=== PATIENT | male | born 1940 | race Caucasian/White ===

== ENCOUNTER 2022-08-14 09:50 | Inpatient (IN) | payer BC, OTHER ==
[~2022-08-14] VITALS: Ht 162.6 cm; Wt 95.3 kg
[2022-08-14 10:05] VITALS: BP_SYST 178
--- NOTE | 2022-08-14 10:08 | NUR ---
Patient to ER bed 5 to gown for evaluation. Side rails up. Report given to EDUIN
--- NOTE | 2022-08-14 10:10 | NUR ---
DR. ROSE AT BEDSIDE TOP ASSESS PT.
--- NOTE | 2022-08-14 10:38 | NUR ---
# 22 gauge angiocath placed to LH. Use of asceptic technique. Opsite placed over site. Blood return noted. Blood for lab drawn from site. Flushed with 10 cc of normal saline. No evidence of infiltration noted. Patient tolerated well.
--- NOTE | 2022-08-14 10:44 | NUR ---
COVID/FLU SAMPLE OBTAINED AND TAKEN TO LAB. EKG COMPLETED.
[2022-08-14 10:52] LABS: BASOPHILS % (AUTO) 0.4 % (0.0-2.0); EOSINOPHILS # (AUTO) 0.1 K/uL (0.0-0.4); HEMATOCRIT 42.2 % (36-54); HEMOGLOBIN 14.5 g/dL (14.0-18.0); LYMPHOCYTES # (AUTO) 0.8 K/uL (1.0-5.5); LYMPHOCYTES % (AUTO) 8.4 % (20.5-51.5); MEAN CORPUSCULAR HEMOGLOBIN 31 pg (27-31); MEAN CORPUSCULAR HGB CONC 34 % (32-36); MEAN CORPUSCULAR VOLUME 91 fL (79.0-98.0); MONOCYTES # (AUTO) 0.7 K/uL (0.0-1.0); MONOCYTES % (AUTO) 7.3 % (1.7-9.3); NEUTROPHILS # (AUTO) 8.3 K/uL (1.8-7.7); NEUTROPHILS % (AUTO) 82.9 % (40.0-70.0); PLATELET COUNT (AUTO) 182 K/uL (130-430); RED BLOOD CELL COUNT(AUTO) 4.67 MIL/uL (4.2-6.2); RED CELL DISTRIBUTION WIDTH 14.6 % (9.0-15.0)
[2022-08-14] MEDS ORDERED: LISI40TA20 PO (11:25)
[2022-08-14] MEDS ORDERED: LIP80 PO (11:25)
[2022-08-14] MEDS ORDERED: NIFE90TA48 PO (11:26)
[2022-08-14] MEDS ORDERED: TERA2CAP18 PO (11:26)
[2022-08-14] MEDS ORDERED: METO50TA7 PO (11:26)
[2022-08-14 11:28] LABS: ANION GAP 13 (5-15); ASPARTATE AMINOTRANSFERASE 12 U/L (10-37); CALCIUM 8.7 mg/dL (8.4-11.0); CHLORIDE 101 mmol/L (98-107); CREATININE 1.24 mg/dL (0.55-1.30); GLUCOSE 161 mg/dL (70-99); TOTAL BILIRUBIN 0.9 mg/dL (0.0-1.0); UREA NITROGEN, BLOOD 14 mg/dL (8-21)
[2022-08-14 11:29] LABS: ALANINE AMINOTRANSFERASE 7 U/L (12-78)
--- NOTE | 2022-08-14 12:10 | NUR ---
MED REC COMPLETED. LEVOFLOXACIN IVPB INITIATED.
[2022-08-14] MEDS ORDERED: iohexoL 350 mgI/mL, 100 ML INFUS..BTL IV ONE (13:13)
--- NOTE | 2022-08-14 13:34 | NUR ---
Pt repositioned to comfort with TV on, VSS.
[2022-08-14] MEDS ORDERED: ONDANSETRON HCL 4 MG/2 ML VIAL IVP PRN (14:45)
[2022-08-14] MEDS ORDERED: ALBUTEROL SULFATE 0.083% 2.5 MG/3 ML VIAL.NEB INH PRN (14:45)
[2022-08-14] MEDS ORDERED: IPRATROPIUM BROM 0.5 MG/2.5 ML VIAL.NEB (ATROVENT) INH PRN (14:45)
[2022-08-14] MEDS ORDERED: AZITHROMYCIN 500 MG in NS 250 ML IV SCH (14:45)
[2022-08-14] MEDS ORDERED: cefTRIAXone 1 GM IVPB PREMIX 50 ML IV SCH (14:45)
[2022-08-14] MEDS ORDERED: LISINOPRIL 10 MG TABLET (PRINIVIL) PO SCH (15:00)
[2022-08-14] MEDS ORDERED: POTASSIUM CHLORIDE 20 MEQ/PKT PACKET PO ONE (15:00)
--- NOTE | 2022-08-14 16:47 | NUR ---
REPORTED TO DR. SCHROEDER THAT PT HAD 2 IV LINES BLOW DURING CTA. RECEIVED ORDER FOR CANCEL CTA AND ORDER V/Q SCAN FOR TOMORROW. ORDER CARRIED OUT. Addendum: 08/14/22 at 1709 by [email or web address] CLARIFICATION: REPORTED TO DR. MENJIVAR
[2022-08-14] MEDS ORDERED: AZITHROMYCIN 500 MG/VIAL (ZITHROMAX) IV ONE ×2 (16:52→16:57)
--- NOTE | 2022-08-14 18:34 | NUR ---
contacted respiratory therapy reported SOB.
--- NOTE | 2022-08-14 18:44 | NUR ---
PT HAS SOB O2 SAT IN THE 80S. PT PLACED ON NONREBREATHER AT 15LPM O2 SAT AT 88%. R/T AT BEDSIDE APPLYING BIPAP.
[2022-08-14] MEDS ORDERED: LevALBUTEROL HCL 1.25 MG/0.5 ML *CONC.* VIAL.NEB (XOPENEX CONC.) INH ONE (18:45)
--- NOTE | 2022-08-14 18:47 | NUR ---
YASMEEN NURSE NABILA MENDOZA TO MAKE AWARE OF RESP DISTRESS
--- NOTE | 2022-08-14 18:59 | NUR ---
REPORTED TO DR. MENDOZA PT SOB ON BIPAP, O2 SAT NOW 89%. RECEIVED ORDER TO INTUBATE. DR. MALDONADO MADE AWARE.
[2022-08-14] MEDS ORDERED: PROPOFOL DRIP 100 ML IV ONE ×2 (19:00→23:44)
[2022-08-14] MEDS ORDERED: ROCURONIUM BROMIDE 10 MG/ML (ZEMURON) IV ONE ×2 (19:00→19:15)
[2022-08-14] MEDS ORDERED: ETOMIDATE 20 MG/ 10 ML VIAL (AMIDATE) IVP ONE (19:00)
--- NOTE | 2022-08-14 19:08 | NUR ---
PT'S SON RESISTING INTUBATION. PT AND PT'S SON EDUCATED ON THE PROCESS. PT'S SON AND PT STATE, "OKAY TO INTUBATED.
--- NOTE | 2022-08-14 19:15 | NUR ---
PT ENDORSED TO EDUIN CHAPPELL. ALL QUESTIONS AND CONCERNS ADDRESSED. TA AWARE PT IS TO BE INTUBATED STAT.
--- NOTE | 2022-08-14 19:21 | NUR ---
Patient not known to be of DNR status. Patient medicated with ETOMIODATE 25 mg AND ROCURONIUM 100 MG for sedation prior to placement of ET tube. Respiratory therapy at bedside prior to placement. Size 7.5 ET AT 23 AT THE LIP tube placed by DR. MARCIAL. Cuff inflated with 12 cc air. Auscultation of breath sounds over bilateral chest wall. ET tube secured with HOLSTER. O2 sats 100 pulse ox. PCXR ordered to check tube placement.
--- NOTE | 2022-08-14 19:30 | NUR ---
DIPRIVAN 5 CG/KG/MIN STARTED FOR SEDATION AT THIS TIME.
--- NOTE | 2022-08-14 19:35 | NUR ---
TITRATED DIPRIVAN TO 10 CG/KG/MIN AT THIS TIME
--- NOTE | 2022-08-14 19:40 | NUR ---
TITRATED DIPRIVAN TO 15 CG/KG/MIN AT THIS TIME
--- NOTE | 2022-08-14 19:45 | NUR ---
Nia rhodes in [facility] - 08/14/22 at 2311 by [email or web address] TITRATED DIPRIVAN TO 15 CG/KG/MIN AT THIS TIME
--- NOTE | 2022-08-14 19:45 | NUR ---
TITRATED DIPRIVAN TO 20 CG/KG/MIN AT THIS TIME
--- NOTE | 2022-08-14 19:45 | NUR ---
Nia rhodes in [facility] - 08/14/22 at 2313 by [email or web address] TITRATED DIPRIVAN TO 25 MCG/KG/MIN AT THIS TIME
--- NOTE | 2022-08-14 19:50 | NUR ---
Nia rhodes in [facility] - 08/14/22 at 2313 by [email or web address] TITRATED DIPRIVAN TO 20 CG/KG/MIN AT THIS TIME
--- NOTE | 2022-08-14 19:50 | NUR ---
TITRATED DIPRIVAN TO 25 CG/KG/MIN AT THIS TIME
--- NOTE | 2022-08-14 19:55 | NUR ---
TITRATED DIPRIVAN TO 30 MCG/KG/MIN AT THIS TIME
--- NOTE | 2022-08-14 20:00 | NUR ---
TITRATED DIPRIVAN TO 35 MCG/KG/MIN AT THIS TIME
--- NOTE | 2022-08-14 20:05 | NUR ---
Nia rhodes in [facility] - 08/14/22 at 2315 by [email or web address] TITRATED DIPRIVAN TO 35 MCG/KG/MIN AT THIS TIME
--- NOTE | 2022-08-14 20:05 | NUR ---
TITRATED DIPRIVAN TO 40 MCG/KG/MIN AT THIS TIME
--- NOTE | 2022-08-14 20:05 | NUR ---
TITRATED DIPRIVAN TO 35 MCG/KG/MIN AT THIS TIME
--- NOTE | 2022-08-14 20:10 | NUR ---
TITRATED DIPRIVAN TO 45 MCG/KG/MIN AT THIS TIME
--- NOTE | 2022-08-14 20:15 | NUR ---
TITRATED DIPRIVAN TO 50 MCG/KG/MIN AT THIS TIME
--- NOTE | 2022-08-14 20:17 | NUR ---
# 16 FR Rowell catheter with use of sterile technique. Immediate return of 100 cc gwen urine noted. Bedside drainage bag placed below level of bladder. Urine sample collected and sent to lab. Pt tolerated procedure well
--- NOTE | 2022-08-14 20:20 | NUR ---
# 16 FR NG tube placed to left nare. Placement checked by auscultation of instilled air into stomach and aspiration of gastric contents. Tubing taped in place to prevent dislodging. Patient tolerated well
[2022-08-14] MEDS ORDERED: hydrALAZINE HCL 20 MG/ML VIAL IVP ONE (20:45)
[2022-08-14] MEDS ORDERED: NITROGLYCERIN 250 ML IV PRN (21:30)
[2022-08-14] MEDS ORDERED: DEXAMETHASONE SOD PHOSPHATE 10 MG/ML VIAL IVP ONE (21:45)
--- NOTE | 2022-08-14 22:00 | NUR ---
@ 1845 assisted in assessment and initiation of BiPAP @ 1905 called to ER to prepare ventilator, at bedside to assist in intubation of pt. No complications to note during procedure.
--- NOTE | 2022-08-14 22:06 | NUR ---
chest xray reviewed by Dr. Bailey. identified ng tube. ok to use
--- NOTE | 2022-08-14 22:06 | NUR ---
Note carmelo in [facility] - 08/15/22 at 0006 by [email or web address] chest xray reviewed by Dr. Bailey. indentified ng tube. ok to use
--- NOTE | 2022-08-14 22:30 | NUR ---
NITRO DRIP STARTED AT 5 MCG/KG/MIN FOR BP OF 200/100.
[2022-08-14] MEDS: FUROSEMIDE 40 MG/4 ML VIAL IVP SCH (22:55)
[2022-08-15] VITALS (34 sets, daily range): BP systolic 109–165
--- NOTE | 2022-08-15 | NUR ---
Oral care performed on patient with ballard. Hernandez tolerated well.
--- NOTE | 2022-08-15 00:30 | NUR ---
1000 ml of gwen urine removed from minor bag. Patient the moved to hospital bed a this time for comfort.
--- NOTE | 2022-08-15 00:59 | NUR ---
nitro 5 mcg/min stopped at this time. BP is 115/62 hr 70.
--- NOTE | 2022-08-15 02:10 | NUR ---
Patient will be admitted to care of DR Jenkins. Admitted to ICU unit. Will go to ICU 4. Belongings list completed. Complete and up to date summary report printed. SBAR report to be given at bedside with opportunity for questions.
--- NOTE | 2022-08-15 03:40 | NUR ---
CONSULTATION PAGED/CALLED Reason for Consultation: Resp Failure Person Who was Notified: Tha Consulting Physician: Dr Golden Customer Service Operator Specialty: Pulmonary Ordering Physician: Dr Lester
[2022-08-15] MEDS ORDERED: NOREPINEPHRINE BITARTRATE 4 MG in NS 246 ML IV PRN (04:15)
[2022-08-15] MEDS ORDERED: FENTANYL CITRATE-0.9 % NACL/PF 100 ML IV PRN (04:15)
[2022-08-15 07:03] LABS: ALANINE AMINOTRANSFERASE 15 U/L (12-78); ANION GAP 7 (5-15); ASPARTATE AMINOTRANSFERASE 16 U/L (10-37); CALCIUM 8.1 mg/dL (8.4-11.0); CHLORIDE 105 mmol/L (98-107); CREATININE 1.37 mg/dL (0.55-1.30); GLUCOSE 191 mg/dL (70-99); TOTAL BILIRUBIN 0.9 mg/dL (0.0-1.0); UREA NITROGEN, BLOOD 19 mg/dL (8-21)
[2022-08-15] MEDS ORDERED: METO50TA16 PO (07:40)
[2022-08-15 08:01] LABS: BASOPHILS % (AUTO) 0.1 % (0.0-2.0); HEMATOCRIT 36.7 % (36-54); HEMOGLOBIN 12.5 g/dL (14.0-18.0); LYMPHOCYTES # (AUTO) 0.5 K/uL (1.0-5.5); LYMPHOCYTES % (AUTO) 2.6 % (20.5-51.5); MEAN CORPUSCULAR HEMOGLOBIN 31 pg (27-31); MEAN CORPUSCULAR HGB CONC 34 % (32-36); MEAN CORPUSCULAR VOLUME 91 fL (79.0-98.0); MONOCYTES # (AUTO) 0.9 K/uL (0.0-1.0); MONOCYTES % (AUTO) 4.8 % (1.7-9.3); NEUTROPHILS # (AUTO) 16.8 K/uL (1.8-7.7); NEUTROPHILS % (AUTO) 92.5 % (40.0-70.0); PLATELET COUNT (AUTO) 173 K/uL (130-430); RED BLOOD CELL COUNT(AUTO) 4.05 MIL/uL (4.2-6.2); RED CELL DISTRIBUTION WIDTH 14.5 % (9.0-15.0)
[2022-08-15] MEDS: PROPOFOL DRIP 100 ML IV PRN ×5 (08:02→21:52)
[2022-08-15 08:07] LABS: WHITE BLOOD COUNT (AUTO) 18.1 K/uL (4.8-10.8)
--- NOTE | 2022-08-15 08:39 | NUR ---
[facility] PAGED DR STEWART REQUESTED BY DR SINGH, SPOKE TO ERLIN, LEFT MESSAGE.
--- NOTE | 2022-08-15 08:44 | NUR ---
TEST EKG DONE AT BEDSIDE.
[2022-08-15] MEDS: lisinopriL 20 MG TABLET PO SCH (08:54)
--- NOTE | 2022-08-15 08:55 | NUR ---
MEDS PO MEDS NOT GIVEN, DAUGHTER STATED "LET'S NOT OVER MEDICATE HIM, HE IS ALREADY ON NITROGLYCERIN DRIP.
[2022-08-15] MEDS: FUROSEMIDE 40 MG/4 ML VIAL IVP SCH ×2 (09:39→21:54)
[2022-08-15] MEDS: ENOXAPARIN SODIUM 40 MG/0.4 ML SYRINGE SUBCUT SCH (09:42)
--- NOTE | 2022-08-15 09:45 | NUR ---
MD DR STEWART RETURNED THE CALL. NOTIFIED HIM OF THE CENTRAL LINE PLACEMENT THRU FEMORAL AREA. HE STATED TO CALL UP A VASCULAR SURGEON IF THE WIRE IS IN THE BLOOD VESSEL.
[2022-08-15 10:11] LABS: THYROID STIMULATING HORMONE 0.39 uIu/mL (0.34-4.82)
[2022-08-15] MEDS: PIPERACILLIN/TAZO 2.25G/DEX-IS 50 ML IV SCH ×3 (11:57→23:55)
--- NOTE | 2022-08-15 15:47 | NUR ---
SURGERY FAMILY AT BEDSIDE AND INFORMED THAT TODAY'S SURGERY IS MOVED TO TOMORROW MORNING.
--- NOTE | 2022-08-15 16:31 | NUR ---
ELEVATED D DIMER PAGED DR ROSALES AND HE CALLED BACK. D DIMER 2069, NO NEW ORDERS RECEIVED.
--- NOTE | 2022-08-15 19:30 | NUR ---
RECEIVED SEDATED WITH PROPOFOL, RASS -2. PATIENT WITHDRAWS TO PAIN. ORALLY INTUBATED, ETT 7.5 AT 25 CM LIPLINE. AC 24, FIO2 35%, TV 450 AND PEEP 5. SUCTIONED SMALL AMOUNT OF WHITISH SECRETIONS. SAT 100%. NURSING CLINICAL DIRECTOR IS SHOWING SB, PATIENT IS ON NTG DRIP AT 4 MCG/MIN . IVS ARE INFUSING ON THE RIGHT IJ TLC. ABDOMEN IS SOFT AND NON-DISTENDED. LEFT NARE NGT IS CLAMPED. PATIENT IS NPO. KLEIN INTACT AND PATENT DRAINING WELL TO ELIZ COLORED URINE. FAMILY IN THE ROOM, QUESTIONS ANSWERED. PATIENT IS AFEBRILE.
[2022-08-16] VITALS (37 sets, daily range): BP systolic 129–211
[2022-08-16] MEDS: PROPOFOL DRIP 100 ML IV PRN ×4 (02:22→16:16)
[2022-08-16] MEDS: PIPERACILLIN/TAZO 2.25G/DEX-IS 50 ML IV SCH ×3 (06:03→17:51)
[2022-08-16 07:52] LABS: ANION GAP 3 (5-15); CALCIUM 8.5 mg/dL (8.4-11.0); CHLORIDE 106 mmol/L (98-107); CREATININE 1.85 mg/dL (0.55-1.30); GLUCOSE 109 mg/dL (70-99); UREA NITROGEN, BLOOD 30 mg/dL (8-21)
[2022-08-16 07:58] LABS: ALANINE AMINOTRANSFERASE 12 U/L (12-78); ALBUMIN 2.8 g/dL (3.4-4.8); ASPARTATE AMINOTRANSFERASE 11 U/L (10-37); TOTAL BILIRUBIN 0.9 mg/dL (0.0-1.0)
[2022-08-16 08:14] LABS: BASOPHILS % (AUTO) 0.2 % (0.0-2.0); EOSINOPHILS % (AUTO) 0.2 % (0.0-4.0); HEMATOCRIT 32.1 % (36-54); LYMPHOCYTES # (AUTO) 1.3 K/uL (1.0-5.5); LYMPHOCYTES % (AUTO) 11.1 % (20.5-51.5); MEAN CORPUSCULAR HEMOGLOBIN 31 pg (27-31); MEAN CORPUSCULAR HGB CONC 34 % (32-36); MEAN CORPUSCULAR VOLUME 90 fL (79.0-98.0); MONOCYTES # (AUTO) 1.3 K/uL (0.0-1.0); NEUTROPHILS # (AUTO) 8.9 K/uL (1.8-7.7); NEUTROPHILS % (AUTO) 77.5 % (40.0-70.0); PLATELET COUNT (AUTO) 156 K/uL (130-430); RED BLOOD CELL COUNT(AUTO) 3.57 MIL/uL (4.2-6.2); RED CELL DISTRIBUTION WIDTH 14.8 % (9.0-15.0); WHITE BLOOD COUNT (AUTO) 11.5 K/uL (4.8-10.8)
[2022-08-16] MEDS: ENOXAPARIN SODIUM 40 MG/0.4 ML SYRINGE SUBCUT SCH (09:00)
[2022-08-16] MEDS ORDERED: ATROPINE SULFATE 0.4 MG/ML VIAL IVP ONE (09:00)
[2022-08-16] MEDS: lisinopriL 20 MG TABLET PO SCH (09:00)
[2022-08-16] MEDS: FUROSEMIDE 40 MG/4 ML VIAL IVP SCH ×2 (09:09→20:15)
[2022-08-16] MEDS ORDERED: DOPamine PREMIX 250 ML IV ONE (09:10)
--- NOTE | 2022-08-16 09:36 | NUR ---
Bety.Tony. PT NOTED WITH BILE COLOR DRAINAGE IN THE NGT. DR ROSALES IN THE ROOM. ORDERED TO LEAVE IT ON LOW INTERMITTENT SUCTION, ORDERS CARRIED OUT.
--- NOTE | 2022-08-16 11:35 | NUR ---
TO O.R. TRANSPORTED PT VIA BED, R.T. BAGGING PT VIA ET TUBE, PORTABLE AMUSEMENT MACHINE MECHANIC IN USE, PT ON DIPRIVAN DRIP AT 40 MCG/KG/MIN, DOBUTAMINE DRIP AT 2 MCG/KG/MIN AND NITROGLYCERIN DRIP AT 5 MCG/MIN.
--- NOTE | 2022-08-16 12:40 | NUR ---
Pt have PVC's on the monitor. Requested RT to change pt back to AC on the vent. Addendum: 08/16/22 at 2227 by Silvia Santiago RN Wrong time listed above. Please disregard
--- NOTE | 2022-08-16 13:22 | NUR ---
TO ICU BROUGHT PT BACK TO ROOM 4. STABLE VITALS SIGNS, CONTINUE CURRENT TREATMENTS.
[2022-08-16] MEDS ORDERED: KCL 20 mEq in 100 mL (PREMIX) 100 ML IV ONE ×2 (13:30→15:30)
--- NOTE | 2022-08-16 13:54 | NUR ---
informed of HR 90's and dobutamine infusing at 2 mcgs. Orders to turn it off and dobutamine turned off. Bedside RN made aware and family made aware as well.
--- NOTE | 2022-08-16 17:30 | NUR ---
VENT R.T. AT BEDSIDE, EDUCATION ON BREATHING TRIAL PROVIDED TO PT'S SON AND DAUGHTER. CPAP MODE INITIATED. PROPOFOL DRIP OFF, PRECEDEX DRIP AT 0.2 MCG/KG/HR.
--- NOTE | 2022-08-16 19:30 | NUR ---
Assumed care of the patient. Pt resting comfortablly on the vent with CPAP trials 10/5 30% in progress without any distress. HOB up. HR 50's with precedex infusing at 2 mcgs and Ntg at 6 mcgs via RIJ. PT remains NPO with and NG in place to LIS. No drainage. Abd soft with bowel sounds. Rowell with gwen urine. Pt arousable andable to nod head yes or no to questions. Family at bedside.
--- NOTE | 2022-08-16 20:36 | NUR ---
Spoke with Dr. Jackson regarding HR 40's 50's. DObutamine reordered and started at 2 mcgs/kg/min. Plan of care to restart IVF and restart dobutamine discussed with pts daughter.
--- NOTE | 2022-08-16 20:40 | NUR ---
Pt have PVC's on the monitor. Requested RT to change pt back to AC on the vent.
--- NOTE | 2022-08-16 21:30 | NUR ---
BP high with dobutamine infusing. Decreased to 0.5 mcgs. Ntg increased to 15 mcgs for BP 210/80. SR on monitor. HR 77. Family remains at bedside falling asleep in the chair. Pt repositioned in bed.
[2022-08-17] VITALS (28 sets, daily range): BP systolic 122–206
--- NOTE | 2022-08-17 | NUR ---
Family remains at bedside. Repositioned pt in bed with pillow support. Heels lifted off bed on a pillow. Comfortable on the vent. Pt easily arousable.
[2022-08-17] MEDS: PIPERACILLIN/TAZO 2.25G/DEX-IS 50 ML IV SCH ×4 (01:43→17:24)
[2022-08-17 06:59] LABS: BASOPHILS % (AUTO) 0.3 % (0.0-2.0); EOSINOPHILS % (AUTO) 0.2 % (0.0-4.0); HEMATOCRIT 32.9 % (36-54); HEMOGLOBIN 11.6 g/dL (14.0-18.0); LYMPHOCYTES % (AUTO) 12.1 % (20.5-51.5); MEAN CORPUSCULAR HEMOGLOBIN 32 pg (27-31); MEAN CORPUSCULAR HGB CONC 35 % (32-36); MEAN CORPUSCULAR VOLUME 91 fL (79.0-98.0); NEUTROPHILS # (AUTO) 6.3 K/uL (1.8-7.7); NEUTROPHILS % (AUTO) 75.4 % (40.0-70.0); PLATELET COUNT (AUTO) 145 K/uL (130-430); RED BLOOD CELL COUNT(AUTO) 3.64 MIL/uL (4.2-6.2); RED CELL DISTRIBUTION WIDTH 13.9 % (9.0-15.0); WHITE BLOOD COUNT (AUTO) 8.3 K/uL (4.8-10.8)
[2022-08-17 07:22] LABS: ALANINE AMINOTRANSFERASE 11 U/L (12-78); ALBUMIN 2.9 g/dL (3.4-4.8); ANION GAP 8 (5-15); ASPARTATE AMINOTRANSFERASE 9 U/L (10-37); CALCIUM 7.6 mg/dL (8.4-11.0); CHLORIDE 108 mmol/L (98-107); CREATININE 1.47 mg/dL (0.55-1.30); GLUCOSE 162 mg/dL (70-99); TOTAL BILIRUBIN 1.1 mg/dL (0.0-1.0); UREA NITROGEN, BLOOD 25 mg/dL (8-21)
--- NOTE | 2022-08-17 08:00 | NUR ---
Opening Note: Patient is a 81 year old male that was admitted to [facility] 08/14 for a CC: SOB for one week, SOB s/p excertion/lying flat, leg swelling. DX: Respiratory Faliure. In E.R. they attempted to do a femoral line where the sheeth broke off inside the patient, and it was removed yesterday. PMHX: borderline DM non tender medications, HTN, hyperlipidemia. RIJ- intact, patent, dressing CDI. IVF: Nitro 20mcg, D5 1/2 100cc, Precedex 0.2mcg. Intubated on 08/14 for worsening RF on Bipap. ETT: 7.5/24cm. Vent: AC/VC 24, 450, +5, 35%. NGT to left nare- running at low intermittent suction, NPO at this time. Rowell inserted 08/16- draining to gravity. +2 edema noted to BLE. Potassium 2.6- MD aware dr henry ordered 40meq via NGT. CPAP to start this am, possible extubation per noc report pending pulmo rounding. and family at bedside will update PRN. Addendum: 08/17/22 at 1107 by [facility], EDUIN DENNY correction: daughter
--- NOTE | 2022-08-17 08:17 | NUR ---
Spoke with Carrie requesting orders from Dr. Lester
[2022-08-17] MEDS ORDERED: POTASSIUM CHLORIDE 20 MEQ TAB.PRT.SR PO ONE (09:00)
--- NOTE | 2022-08-17 09:34 | NUR ---
Pulmo rounds: Dr west - aware patient is CPAPing at this time. ABG after one hour- RT aware, possible extubation. Norvasc added for hypertension (10mg daily) GI MD- replaced potassium 40meq via ngt, 40meq via IV. - family at bedside aware of plan of care.
[2022-08-17] MEDS ORDERED: POTASSIUM CHLORIDE 40 MEQ in NS 250 ML IV ONE (09:45)
[2022-08-17] MEDS ORDERED: amLODIPine BESYLATE 10 MG TABLET NG ONE (10:00)
[2022-08-17] MEDS: lisinopriL 20 MG TABLET PO SCH (10:16)
[2022-08-17] MEDS: ENOXAPARIN SODIUM 40 MG/0.4 ML SYRINGE SUBCUT SCH (10:18)
[2022-08-17] MEDS: FUROSEMIDE 40 MG/4 ML VIAL IVP SCH ×2 (10:18→21:37)
--- NOTE | 2022-08-17 10:30 | NUR ---
0953 PT EXTUBATED AND PLACED ON 2L NC PER DR. MOHAMUD YODER. SAT 100% HR 62 RR 19. RN AWARE. WILL CONT TO MONITOR. Addendum: 08/17/22 at 1033 by Evy Levi RT Amended: Links added.
--- NOTE | 2022-08-17 11:04 | NUR ---
extubated: ABG complete, Seen by Dr West- extubated at 0953 to NC2L at bedside. NGT still in place, pending tube feeding to start once feeding pump is obtained. Addendum: 08/17/22 at 1107 by [facility] RN correction: daughter Addendum: 08/17/22 at 1135 by [facility] EDUIN Montez RN dr west cancelled VQ scan
--- NOTE | 2022-08-17 11:25 | NUR ---
Spoke with Topher at front of house manager requesting orders from Dr. Martinez
[2022-08-17] MEDS ORDERED: NITROGLYCERIN 250 ML IV PRN (20:00)
[2022-08-18] VITALS (24 sets, daily range): BP systolic 115–177
[2022-08-18] MEDS: PIPERACILLIN/TAZO 2.25G/DEX-IS 50 ML IV SCH ×4 (01:00→18:21)
[2022-08-18 06:46] LABS: ANION GAP 6 (5-15); CALCIUM 8.4 mg/dL (8.4-11.0); CHLORIDE 107 mmol/L (98-107); CREATININE 1.29 mg/dL (0.55-1.30); GLUCOSE 157 mg/dL (70-99); UREA NITROGEN, BLOOD 23 mg/dL (8-21)
[2022-08-18 06:56] LABS: BASOPHILS # (AUTO) 0.1 K/uL (0.0-0.2); BASOPHILS % (AUTO) 0.9 % (0.0-2.0); EOSINOPHILS # (AUTO) 0.1 K/uL (0.0-0.4); EOSINOPHILS % (AUTO) 0.9 % (0.0-4.0); HEMOGLOBIN 10.7 g/dL (14.0-18.0); LYMPHOCYTES # (AUTO) 1.2 K/uL (1.0-5.5); LYMPHOCYTES % (AUTO) 13.8 % (20.5-51.5); MEAN CORPUSCULAR HEMOGLOBIN 32 pg (27-31); MEAN CORPUSCULAR HGB CONC 36 % (32-36); MEAN CORPUSCULAR VOLUME 90 fL (79.0-98.0); MONOCYTES % (AUTO) 11.4 % (1.7-9.3); NEUTROPHILS # (AUTO) 6.3 K/uL (1.8-7.7); PLATELET COUNT (AUTO) 155 K/uL (130-430); RED BLOOD CELL COUNT(AUTO) 3.32 MIL/uL (4.2-6.2); RED CELL DISTRIBUTION WIDTH 13.8 % (9.0-15.0); WHITE BLOOD COUNT (AUTO) 8.7 K/uL (4.8-10.8)
--- NOTE | 2022-08-18 07:25 | NUR ---
Spoke with Rosalina at lead front desk agent requesting Dr. Lester; however, was referred to Dr. Branch to request orders for patient.
--- NOTE | 2022-08-18 07:44 | NUR ---
Opening Note: Patient is a 81 year old male that was admitted to [place] 08/14 for a CC: SOB for one week, SOB s/p excertion/lying flat, leg swelling. DX: Respiratory Faliure. In E.R. they attempted to do a femoral line where the sheeth broke off inside the patient, and it was removed 08/16. PMHX: borderline DM non tender medications, HTN, hyperlipidemia. RIJ- intact, patent, dressing CDI. IVF: Nitro 35mcg,Precedex off last night. Intubated on 08/14 for worsening RF on Bipap. Extubated yesterday 08/17 to NC2L. NGT to left nare- running Jevity 1.2 at 40cc/hr. FWF 100q6h. Pending swallow evaluation today. Rowell inserted 08/16- draining to gravity. +1 edema noted to BLE. Potassium 2.7- MD aware Dr. Michelle ordered 40meq via NGT, 40meq IV. Daughter and family at bedside will update PRN
[2022-08-18] MEDS ORDERED: POTASSIUM CHLORIDE 20 MEQ/PKT PACKET PO ONE (08:00)
[2022-08-18] MEDS ORDERED: KCL 40 mEq in 100 mL (PREMIX) 40 MEQ, LIDOCAINE JECT 2% PF 100 MG 75 MG in NS 150 ML IV ONE (08:00)
[2022-08-18] MEDS ORDERED: KCL 40 mEq in 100 mL (PREMIX) 100 ML IV ONE (09:00)
[2022-08-18] MEDS: lisinopriL 20 MG TABLET PO SCH (09:07)
[2022-08-18] MEDS: FUROSEMIDE 40 MG/4 ML VIAL IVP SCH (09:07)
[2022-08-18] MEDS: amLODIPine BESYLATE 10 MG TABLET NG SCH (09:07)
[2022-08-18] MEDS: ENOXAPARIN SODIUM 40 MG/0.4 ML SYRINGE SUBCUT SCH (09:08)
--- NOTE | 2022-08-18 14:30 | NUR ---
Wound Evaluation: Wound Consult ordered for Low Andrea Score. Patient evaluated for a low Andrea score of 13. Patient was awake, alert, and received in a [place] Bed with an IsoFlex MANISHA mattress. Patient needs to be turned in bed. Skin assessment: 1. Right Proximal Femoral area: Surgical site from failed central line. No odor, no drainage. Site has sutures. Recommend: [place] site with Betadine. Allow Betadine to air dry. Cover site with foam dressing for protection. For site care daily, and as needed for dressing soiling or dislodgment. Recommend reposition patient every 2 hours with pillow support. Elevate, off-load and float bilateral heels with pillows. Offload pressure areas with pillows for pressure re-distribution. Perform skin care and monitor skin integrity Q shift. Use moisture barrier cream on moisture susceptible areas QID and PRN for soiling. Initiate low air-loss therapy by attaching an air pump to the mattress.
--- NOTE | 2022-08-18 18:25 | NUR ---
ST EVALUATION COMPLETED. ST TX NOT INDICATED AT THIS TIME. RECOMMEND PO DIET OF PUREE/NECTAR THICK LIQUIDS. 1:1 SUPERVISION AND FULL ASPIRATION PRECAUTIONS.
--- NOTE | 2022-08-18 20:00 | NUR ---
ASSESSMENT Pt alert/oriented to self and place. O2 in use 2L/NC. Right IJ central line patent dressing intact, with fluids infusing. Saline lock present right hand 22ag. Rowell cath present draining Nanette color urine.
[2022-08-18] MEDS: METOPROLOL TARTRATE 25 MG TABLET PO SCH (21:28)
--- NOTE | 2022-08-18 22:30 | NUR ---
NITRO Will start decreasing Nitro drip per MD orders.
[2022-08-19] VITALS (23 sets, daily range): BP systolic 130–184
[2022-08-19] MEDS: PIPERACILLIN/TAZO 2.25G/DEX-IS 50 ML IV SCH ×4 (00:06→17:23)
--- NOTE | 2022-08-19 00:22 | NUR ---
RIGHT THIGH Right thigh with small suture line, all intact open to air. Area is bruised and with swelling present.
--- NOTE | 2022-08-19 04:45 | NUR ---
BACK Left upper back with large dark skin area. Skin intact.
[2022-08-19 06:25] LABS: BASOPHILS % (AUTO) 0.2 % (0.0-2.0); EOSINOPHILS # (AUTO) 0.1 K/uL (0.0-0.4); EOSINOPHILS % (AUTO) 0.4 % (0.0-4.0); HEMATOCRIT 31.3 % (36-54); LYMPHOCYTES % (AUTO) 8.1 % (20.5-51.5); MEAN CORPUSCULAR HEMOGLOBIN 32 pg (27-31); MEAN CORPUSCULAR HGB CONC 35 % (32-36); MEAN CORPUSCULAR VOLUME 90 fL (79.0-98.0); MONOCYTES # (AUTO) 1.3 K/uL (0.0-1.0); MONOCYTES % (AUTO) 10.2 % (1.7-9.3); NEUTROPHILS # (AUTO) 10.3 K/uL (1.8-7.7); NEUTROPHILS % (AUTO) 81.1 % (40.0-70.0); PLATELET COUNT (AUTO) 147 K/uL (130-430); RED BLOOD CELL COUNT(AUTO) 3.48 MIL/uL (4.2-6.2); RED CELL DISTRIBUTION WIDTH 13.7 % (9.0-15.0)
[2022-08-19 06:56] LABS: CALCIUM 8.4 mg/dL (8.4-11.0); CHLORIDE 108 mmol/L (98-107); CREATININE 1.18 mg/dL (0.55-1.30); GLUCOSE 157 mg/dL (70-99)
[2022-08-19 07:04] LABS: UREA NITROGEN, BLOOD 22 mg/dL (8-21)
[2022-08-19 07:13] LABS: ANION GAP 6 (5-15)
[2022-08-19 07:27] LABS: WHITE BLOOD COUNT (AUTO) 12.7 K/uL (4.8-10.8)
--- NOTE | 2022-08-19 07:46 | NUR ---
Opening Note: Patient is a 81 year old male that was admitted to [facility] 08/14 for a CC: SOB for one week, SOB s/p excertion/lying flat, leg swelling. DX: Respiratory Failure. In E.R. they attempted to do a femoral line where the sheeth broke off inside the patient, and it was removed 08/16. PMHX: borderline DM non tender medications, HTN, hyperlipidemia. RIJ- intact, patent, dressing CDI. IVF: NS TKO, nitro titrated off at 2300 per noc RN. Intubated on 08/14 for worsening RF on Bipap. Extubated 08/17 to NC2L. Passed swallow evaluation - purree nectar thick diet. Rowell inserted 08/16- draining to gravity. +1 edema noted to BLE. Patient had boughts of confusion last night attempting to get out of bed, but easily oriented. NSR on tele monitor. Family to be updated PRN throughout shift.
[2022-08-19] MEDS: METOPROLOL TARTRATE 25 MG TABLET PO SCH ×2 (08:43→20:38)
[2022-08-19] MEDS: lisinopriL 20 MG TABLET PO SCH (08:44)
[2022-08-19] MEDS: amLODIPine BESYLATE 10 MG TABLET NG SCH (08:44)
[2022-08-19] MEDS: ENOXAPARIN SODIUM 40 MG/0.4 ML SYRINGE SUBCUT SCH (08:45)
[2022-08-19] MEDS: FUROSEMIDE 40 MG/4 ML VIAL IVP SCH (08:45)
[2022-08-19] MEDS ORDERED: KCL 40 mEq in 100 mL (PREMIX) 100 ML IV ONE (09:00)
[2022-08-19] MEDS ORDERED: POTASSIUM CHLORIDE 20 MEQ/PKT PACKET PO ONE (09:00)
--- NOTE | 2022-08-19 11:41 | NUR ---
Cardiology called- regarding BP 166/74, Dr. Jackson, aware of BP and medications. No changes made at this time.
--- NOTE | 2022-08-19 17:42 | NUR ---
Dietitian Recommendations * Continue Puree, [place] Thick liquids per ST recommendation (comes w/ Ensure TID -- yields 1050kcal/day, 60g protein/day) * Consider CCHO diet restriction if increased BG persists * Consider Fish BID (supplement yield 180kcal/day, 5g protein/day) * Encourage good PO intakes, 1:1 feeding assistance Please refer to nutrition assessment for details, thanks! CC, MPH, RDN
--- NOTE | 2022-08-19 22:22 | NUR ---
TRANSFER Pt transferred to Telemetry 123B via bed accompanied by ASSISTANT PLANT CONTROLLER. No belongings present with patient. Pt alert/ oriented to self and place. RIJ dressing changed before transfer. Report given to Ying Manzo RN.
[2022-08-20] VITALS: BP_SYST 138
[2022-08-20] MEDS: PIPERACILLIN/TAZO 2.25G/DEX-IS 50 ML IV SCH ×4 (00:19→16:27)
[2022-08-20 06:55] LABS: BASOPHILS # (AUTO) 0.1 K/uL (0.0-0.2); BASOPHILS % (AUTO) 0.5 % (0.0-2.0); EOSINOPHILS # (AUTO) 0.3 K/uL (0.0-0.4); EOSINOPHILS % (AUTO) 3.2 % (0.0-4.0); HEMATOCRIT 35.8 % (36-54); HEMOGLOBIN 12.5 g/dL (14.0-18.0); LYMPHOCYTES # (AUTO) 1.2 K/uL (1.0-5.5); LYMPHOCYTES % (AUTO) 11.1 % (20.5-51.5); MEAN CORPUSCULAR HEMOGLOBIN 32 pg (27-31); MEAN CORPUSCULAR HGB CONC 35 % (32-36); MEAN CORPUSCULAR VOLUME 90 fL (79.0-98.0); MONOCYTES # (AUTO) 1.2 K/uL (0.0-1.0); MONOCYTES % (AUTO) 11.6 % (1.7-9.3); NEUTROPHILS # (AUTO) 7.8 K/uL (1.8-7.7); NEUTROPHILS % (AUTO) 73.6 % (40.0-70.0); PLATELET COUNT (AUTO) 164 K/uL (130-430); RED BLOOD CELL COUNT(AUTO) 3.96 MIL/uL (4.2-6.2); RED CELL DISTRIBUTION WIDTH 13.8 % (9.0-15.0); WHITE BLOOD COUNT (AUTO) 10.6 K/uL (4.8-10.8)
--- NOTE | 2022-08-20 07:00 | NUR ---
Report received from charge account identification clerk RN for continuity of care. Patient stable.
[2022-08-20 07:05] LABS: ALANINE AMINOTRANSFERASE 17 U/L (12-78); ANION GAP 9 (5-15); ASPARTATE AMINOTRANSFERASE 13 U/L (10-37); CALCIUM 9.2 mg/dL (8.4-11.0); CHLORIDE 107 mmol/L (98-107); CREATININE 1.01 mg/dL (0.55-1.30); GLUCOSE 164 mg/dL (70-99); TOTAL BILIRUBIN 1.1 mg/dL (0.0-1.0); UREA NITROGEN, BLOOD 24 mg/dL (8-21)
[2022-08-20] MEDS: FUROSEMIDE 40 MG/4 ML VIAL IVP SCH (08:38)
[2022-08-20] MEDS: POTASSIUM CHLORIDE 20 MEQ TAB.PRT.SR PO SCH (08:39)
[2022-08-20] MEDS: amLODIPine BESYLATE 10 MG TABLET NG SCH (08:39)
[2022-08-20] MEDS: lisinopriL 20 MG TABLET PO SCH (08:40)
[2022-08-20] MEDS: ENOXAPARIN SODIUM 40 MG/0.4 ML SYRINGE SUBCUT SCH (08:40)
[2022-08-20] MEDS: METOPROLOL TARTRATE 25 MG TABLET PO SCH ×2 (08:40→21:15)
--- NOTE | 2022-08-20 08:52 | NUR ---
Patient son claiming that the patient's jacket shirt and pants not with patient. Checked room and not in room. Called ICU for belongings check.
--- NOTE | 2022-08-20 09:05 | NUR ---
Cardiology consult, DR ROSALES was called, re: HR IN THE 160'S. SPOKE TO OUR ETHICS INSTRUCTOR KIARA
[2022-08-20] MEDS ORDERED: METOPROLOL TARTRATE 5 MG/5 ML VIAL IVP ONE (09:15)
[2022-08-20] MEDS ORDERED: METOPROLOL TARTRATE 25 MG TABLET PO ONE ×2 (09:15→09:30)
--- NOTE | 2022-08-20 09:16 | NUR ---
Patient HR 130-[address] Jackson notified. Stat EKG and new order for medications noted and carried out.
[2022-08-20] MEDS ORDERED: METOPROLOL TARTRATE 5 MG/5 ML VIAL ONE (09:25)
--- NOTE | 2022-08-20 11:28 | NUR ---
Barcode not scanning for zosyn medication.
[2022-08-20 13:43] VITALS: BP_SYST 113
[2022-08-20 14:19] VITALS: BP_SYST 113
[2022-08-20 15:47] VITALS: BP_SYST 159
--- NOTE | 2022-08-20 19:34 | NUR ---
Report given to utility bill collection clerk RN for continuity of care. Patient in stable condition.
[2022-08-20 20:00] VITALS: BP_SYST 151
--- NOTE | 2022-08-21 01:02 | NUR ---
patient refusing tele monitor RN sarah walks into room informed patient tele monitor is off patient states "its ok I dont want it on, i am going to see the heart doctor anyways." RN replies "I think it would be a good idea for you to wear it on so the heart doctor can measure your heart and and rhythm for the morning." patient replies "I don't want to argue with you I already said no."
[2022-08-21] MEDS: PIPERACILLIN/TAZO 2.25G/DEX-IS 50 ML IV SCH ×4 (06:00→20:17)
--- NOTE | 2022-08-21 07:00 | NUR ---
Report received from second shift supervisor RN for continuity of care. Patient stable.
--- NOTE | 2022-08-21 07:43 | NUR ---
PHYSICAL THERAPY CO-SIGN The Physical Therapy Progress Notes documented by Nanny/Household Manager have been reviewed. Reviewed/Co-Signed by: Burt Macias Documentation Done by: ONEAL HUNTER PTA Addendum: 08/21/22 at 0743 by Burt Macias PT Amended: Links added.
[2022-08-21] MEDS: METOPROLOL TARTRATE 25 MG TABLET PO SCH ×2 (09:12→20:18)
[2022-08-21] MEDS: POTASSIUM CHLORIDE 20 MEQ TAB.PRT.SR PO SCH (09:12)
[2022-08-21] MEDS: amLODIPine BESYLATE 10 MG TABLET NG SCH (09:13)
[2022-08-21] MEDS: FUROSEMIDE 40 MG/4 ML VIAL IVP SCH (09:14)
[2022-08-21] MEDS: ENOXAPARIN SODIUM 40 MG/0.4 ML SYRINGE SUBCUT SCH (09:14)
[2022-08-21] MEDS: lisinopriL 20 MG TABLET PO SCH (09:14)
[2022-08-21 12:10] VITALS: BP_SYST 129
--- NOTE | 2022-08-21 12:23 | NUR ---
PATIENT IS SAFE TO AMBULATE WITH NURSING ASSISTANCE, STAND BY ASSISTANCE. PATIENT SHOULD USE THE FWW FOR SUPPORT. SEE THE TREATMENT NOTE.
[2022-08-21] MEDS: ACETAMINOPHEN 325 MG TABLET NG PRN ×2 (13:00→20:19)
[2022-08-21 14:35] VITALS: BP_SYST 134
[2022-08-21 16:15] VITALS: BP_SYST 133
--- NOTE | 2022-08-21 19:00 | NUR ---
Report given to vacuum repairer RN for continuity of care. Patient stable.
[2022-08-21 20:34] VITALS: BP_SYST 136
[2022-08-22 00:48] VITALS: BP_SYST 130
[2022-08-22 06:43] LABS: BASOPHILS # (AUTO) 0.1 K/uL (0.0-0.2); BASOPHILS % (AUTO) 0.9 % (0.0-2.0); EOSINOPHILS # (AUTO) 0.5 K/uL (0.0-0.4); EOSINOPHILS % (AUTO) 6.6 % (0.0-4.0); HEMATOCRIT 34.8 % (36-54); LYMPHOCYTES # (AUTO) 1.3 K/uL (1.0-5.5); LYMPHOCYTES % (AUTO) 16.5 % (20.5-51.5); MEAN CORPUSCULAR HEMOGLOBIN 31 pg (27-31); MEAN CORPUSCULAR HGB CONC 35 % (32-36); MEAN CORPUSCULAR VOLUME 91 fL (79.0-98.0); MONOCYTES # (AUTO) 0.8 K/uL (0.0-1.0); MONOCYTES % (AUTO) 10.7 % (1.7-9.3); NEUTROPHILS % (AUTO) 65.3 % (40.0-70.0); PLATELET COUNT (AUTO) 192 K/uL (130-430); RED BLOOD CELL COUNT(AUTO) 3.84 MIL/uL (4.2-6.2); RED CELL DISTRIBUTION WIDTH 13.6 % (9.0-15.0); WHITE BLOOD COUNT (AUTO) 7.6 K/uL (4.8-10.8)
[2022-08-22 07:48] VITALS: BP_SYST 151
[2022-08-22 08:03] LABS: ALANINE AMINOTRANSFERASE 14 U/L (12-78); ALBUMIN 2.8 g/dL (3.4-4.8); ANION GAP 7 (5-15); ASPARTATE AMINOTRANSFERASE 14 U/L (10-37); CALCIUM 9.2 mg/dL (8.4-11.0); CHLORIDE 106 mmol/L (98-107); CREATININE 1.26 mg/dL (0.55-1.30); GLUCOSE 154 mg/dL (70-99); TOTAL BILIRUBIN 0.9 mg/dL (0.0-1.0); UREA NITROGEN, BLOOD 37 mg/dL (8-21)
[2022-08-22] MEDS: METOPROLOL TARTRATE 25 MG TABLET PO SCH ×2 (09:53→21:37)
[2022-08-22] MEDS: lisinopriL 20 MG TABLET PO SCH (09:54)
[2022-08-22] MEDS: POTASSIUM CHLORIDE 20 MEQ TAB.PRT.SR PO SCH (09:55)
[2022-08-22] MEDS: amLODIPine BESYLATE 10 MG TABLET NG SCH (09:55)
[2022-08-22] MEDS: FUROSEMIDE 40 MG/4 ML VIAL IVP SCH (09:56)
[2022-08-22] MEDS: ENOXAPARIN SODIUM 40 MG/0.4 ML SYRINGE SUBCUT SCH (09:57)
[2022-08-22] MEDS ORDERED: KCL 20 mEq in 100 mL (PREMIX) 100 ML IV ONE ×2 (11:30→13:30)
[2022-08-22 12:05] VITALS: BP_SYST 136
[2022-08-22 16:05] VITALS: BP_SYST 146
[2022-08-22 20:00] VITALS: BP_SYST 138
--- NOTE | 2022-08-22 20:02 | NUR ---
Report given to shift commander RN for continuity of care. Patient stable.
[2022-08-23] VITALS: BP_SYST 142
[2022-08-23 04:00] VITALS: BP_SYST 117
--- NOTE | 2022-08-23 07:00 | NUR ---
Report received from maintenance supervisor 2nd shift RN for continuity of care. Patient in stable condition.
[2022-08-23 08:00] VITALS: BP_SYST 141
[2022-08-23] MEDS: ENOXAPARIN SODIUM 40 MG/0.4 ML SYRINGE SUBCUT SCH (08:12)
[2022-08-23] MEDS: amLODIPine BESYLATE 10 MG TABLET NG SCH (08:13)
[2022-08-23] MEDS: METOPROLOL TARTRATE 25 MG TABLET PO SCH ×2 (08:14→21:53)
[2022-08-23] MEDS: lisinopriL 20 MG TABLET PO SCH (08:14)
[2022-08-23] MEDS: FUROSEMIDE 40 MG/4 ML VIAL IVP SCH (08:15)
[2022-08-23] MEDS: POTASSIUM CHLORIDE 20 MEQ TAB.PRT.SR PO SCH (08:15)
[2022-08-23] MEDS ORDERED: POTASSIUM CHLORIDE 20 MEQ TAB.PRT.SR PO ONE (11:30)
[2022-08-23 12:00] VITALS: BP_SYST 138
[2022-08-23] MEDS: PIPERACILLIN/TAZO 2.25G/DEX-IS 50 ML IV SCH ×2 (12:23→18:46)
--- NOTE | 2022-08-23 13:28 | NUR ---
Updated with Dr. Branch regarding plan of care.
--- NOTE | 2022-08-23 13:46 | NUR ---
Spoke with Dr. Aceves regarding HGB at 7.2 Addendum: 08/23/22 at 1849 by Avery Montez RN RN please disregard. Error
[2022-08-23 13:51] LABS: BASOPHILS # (AUTO) 0.1 K/uL (0.0-0.2); BASOPHILS % (AUTO) 0.7 % (0.0-2.0); EOSINOPHILS # (AUTO) 0.3 K/uL (0.0-0.4); EOSINOPHILS % (AUTO) 2.5 % (0.0-4.0); HEMATOCRIT 36.4 % (36-54); HEMOGLOBIN 12.5 g/dL (14.0-18.0); LYMPHOCYTES # (AUTO) 1.3 K/uL (1.0-5.5); LYMPHOCYTES % (AUTO) 12.9 % (20.5-51.5); MEAN CORPUSCULAR HEMOGLOBIN 31 pg (27-31); MEAN CORPUSCULAR HGB CONC 34 % (32-36); MEAN CORPUSCULAR VOLUME 91 fL (79.0-98.0); MONOCYTES % (AUTO) 9.8 % (1.7-9.3); NEUTROPHILS # (AUTO) 7.5 K/uL (1.8-7.7); NEUTROPHILS % (AUTO) 74.1 % (40.0-70.0); PLATELET COUNT (AUTO) 242 K/uL (130-430); RED BLOOD CELL COUNT(AUTO) 4.02 MIL/uL (4.2-6.2); RED CELL DISTRIBUTION WIDTH 14.3 % (9.0-15.0); WHITE BLOOD COUNT (AUTO) 10.1 K/uL (4.8-10.8)
[2022-08-23 14:40] LABS: ANION GAP 9 (5-15); CALCIUM 9.4 mg/dL (8.4-11.0); CHLORIDE 104 mmol/L (98-107); CREATININE 1.44 mg/dL (0.55-1.30); GLUCOSE 171 mg/dL (70-99); UREA NITROGEN, BLOOD 36 mg/dL (8-21)
[2022-08-23 16:00] VITALS: BP_SYST 124
--- NOTE | 2022-08-23 18:49 | NUR ---
Reported to Dr. Branch latest potassium level. No new orders at this time.
--- NOTE | 2022-08-23 19:37 | NUR ---
Report given to second shift supervisor RN for continuity of care. Patient in stable condition.
[2022-08-23 20:00] VITALS: BP_SYST 122
[2022-08-24] VITALS (7 sets, daily range): BP systolic 114–144
[2022-08-24] MEDS: PIPERACILLIN/TAZO 2.25G/DEX-IS 50 ML IV SCH ×5 (07:01→23:52)
--- NOTE | 2022-08-24 07:30 | NUR ---
OPENING NOTE Patient sitting in bed at this time. He is awake, alert, and oriented. He denies pain or discomfort at this time. IJ site is clean, dry, and intact at this time. Fluids ongoing. Call light within reach. All safety precautions observed.
[2022-08-24] MEDS: POTASSIUM CHLORIDE 20 MEQ TAB.PRT.SR PO SCH (09:02)
[2022-08-24] MEDS: lisinopriL 20 MG TABLET PO SCH (09:03)
[2022-08-24] MEDS: amLODIPine BESYLATE 10 MG TABLET NG SCH (09:04)
[2022-08-24] MEDS: ENOXAPARIN SODIUM 40 MG/0.4 ML SYRINGE SUBCUT SCH (09:05)
[2022-08-24] MEDS: METOPROLOL TARTRATE 25 MG TABLET PO SCH ×2 (09:05→20:45)
[2022-08-24] MEDS: FUROSEMIDE 40 MG/4 ML VIAL IVP SCH (09:06)
--- NOTE | 2022-08-24 11:15 | NUR ---
FAMILY AT BEDSIDE Family member Sebastián is at bedside at this time.
[2022-08-24] MEDS ORDERED: SPIRONOLACTONE 25 MG TABLET (ALDACTONE) PO ONE (12:30)
--- NOTE | 2022-08-24 16:50 | NUR ---
RN ROUNDS Patient laying in bed at this time. No complaints of pain or discomfort. States he wants to go home. He was educated on the reasons he is still in the hospital. Call light within reach. All safety precautions observed.
--- NOTE | 2022-08-24 18:11 | NUR ---
Nutrition F/U: Admitting Diagnosis Respiratory failure Reviewed Pertinent Medical/Surgical Hx Medical Record; Patient Medical History Comment: Per EMR review, PMH of DM, HTN, HLD, lactic acidosis, chronic leg edema. Pt admitted for SOB 1 wk and leg swelling. Dx of acute hypoxemia, possible CHF and pneumonia, acute respiratory failure. Pt also found w/ valvular heart disease w/ moderate aortic stenosis and mitral insufficiency. Pt intubated 08/14 and extubated 08/17 per EMR review. Pt speech therapy note 08/18: recommend puree diet w/ nectar thick liquids, 1:1 supervision w/ full aspiration precautions. Subjective Information: RD rounded to patient room and s/w patient bedside. Per EMR, patient noted with 53% PO intake x 8 meals. Patient endorses usual intake includes 2 small meals daily with usual poor appetite. RD encouraged pt to consider adjusting eating habits. Patient stated, I only eat 2 small meals a day and still havent lost weight. RD suggested patient may be consuming too few calories/nutrients throughout the day, and instead patient s/b consuming at least 3-5 small meals daily. Pt endorses liking Ensure ONS now and stated he will drink those and Prydeinig yogurt as small meals or snacks to increase his intake at home, RD agreeable and praised patient for making his own nutrition goals at home. RD discussed LBM 08/22 x2 (per EMR) and patient concerned ONS giving him more BM daily. Pt endorses usual bowel frequency q 2-[address] increased fiber/water intake with patient and the importance of normal, frequent BM. Current Diet Order/Nutrition Support: Mechanical Soft x 1 day Patient/Significant Other Able To Verbalize Education Provided Not indicated Pertinent Medications: Lopressor, Norvasc, Lovenox, Lisinopril, piper/tazo, Pertinent Labs: Dwawn 08/23 - BUN 36 H, Cre 1.44 H, BG 171 H, HbA1c 5.9H Height (Feet) 5 feet Height (Inches) 4.00 inches Weight (Pounds) 210 pounds Weight (Calculated Kilograms) 95.617280 kilograms Patient Weight 95.254 kg Body Mass Index 36.04 kg/m2 %IBW 162 [place]/Adjusted Body Weight 130#/59kg IBW Recent Weight Change No Weight Status Obese Gastrointestinal Symptoms None Last BM Aug 22, 2022 Difficulty With: Chewing Skin Integrity Comment: Andrea Score 16: R Femoral area Sx site/failed central line per wound eval note 08/18; Edema: BLE/BUE +1 pitting per EMR review 08/24. Current % PO Fair (50-74%) Estimated Energy Expenditure (kcals/day) [phone] (30-35kcal/kg IBW d/t obesity, wound healing, crit illness/PNA) Estimated Protein Required (g/day) 89-118 (1.5-2g/kg IBW d/t obesity, wound healing, crit illness/PNA) Estimated Fluid Required (l/day) Defer to MD d/t CHF Problem/Etiology/Signs/Symptoms * Increased energy needs R/T metabolic demands AEB estimated nutritional needs d/t wound healing and critical illness/pneumonia (On-going) Expected Outcomes/Goals Monitor appetite and PO intakes w/ goal of meeting >75% estimated nutritional needs, labs trending WNL, normal GI function, and skin integrity/wt maintenance. Dietitian Recommendations * Continue Mechanical Soft diet (comes w/ Ensure TID -- yields 1050kcal/day, 60g protein/day) * Consider CCHO diet restriction if PO intake > 75% average at mealtimes * Consider Fish BID (yields 180kcal/day, 5g protein/day) Follow Up Mod Risk: F/U in 3-5 days
--- NOTE | 2022-08-24 18:13 | NUR ---
Dietitian Recommendations * Continue Mechanical Soft diet (comes w/ Ensure TID -- yields 1050kcal/day, 60g protein/day) * Consider CCHO diet restriction if PO intake > 75% average at mealtimes * Consider Fish BID (yields 180kcal/day, 5g protein/day) Please refer to nutrition f/u for details, thanks! CC, MPH, RDN
--- NOTE | 2022-08-24 18:47 | NUR ---
CLOSING NOTE Patient sitting up in bed at this time. Awake, alert, oriented, and eating dinner and watching TV. He denies pain or discomfort. IJ site is clean, dry, and intact. NS is running TKO. Call light within reach. Safety precautions observed.
[2022-08-24] MEDS: SPIRONOLACTONE 25 MG TABLET (ALDACTONE) PO SCH (20:46)
[2022-08-25] VITALS: BP_SYST 128
[2022-08-25 04:50] VITALS: BP_SYST 130
[2022-08-25] MEDS: PIPERACILLIN/TAZO 2.25G/DEX-IS 50 ML IV SCH ×2 (05:12→12:10)
--- NOTE | 2022-08-25 07:30 | NUR ---
OPENING NOTE Received report from night shift supervisor RN. Upon entering room, patient is sleeping in bed. Eyes closed, no s/s of pain or discomfort. Call light within reach, all safety precautions observed.
[2022-08-25 08:05] VITALS: BP_SYST 151
[2022-08-25] MEDS: lisinopriL 20 MG TABLET PO SCH (08:44)
[2022-08-25] MEDS: SPIRONOLACTONE 25 MG TABLET (ALDACTONE) PO SCH (08:45)
[2022-08-25] MEDS: amLODIPine BESYLATE 10 MG TABLET NG SCH (08:45)
[2022-08-25] MEDS: METOPROLOL TARTRATE 25 MG TABLET PO SCH (08:46)
[2022-08-25] MEDS: ENOXAPARIN SODIUM 40 MG/0.4 ML SYRINGE SUBCUT SCH (08:46)
--- NOTE | 2022-08-25 11:30 | NUR ---
FAMILY AT BEDSIDE Son Rich at bedside at this time.
[2022-08-25 11:47] VITALS: BP_SYST 107
--- NOTE | 2022-08-25 12:32 | NUR ---
ID CONSULT: SPOKE WITH DR CAMPOS DOING ROUNDS AND AWARE OF THE CONSULTS.HE WILL SHIFT IV ANTIBIOTICS TO ORAL ORDERED.
--- NOTE | 2022-08-25 13:12 | NUR ---
DOWNGRADE TO MED SURG Telemetry box removed.
[2022-08-25 13:22] LABS: BASOPHILS # (AUTO) 0.1 K/uL (0.0-0.2); BASOPHILS % (AUTO) 0.7 % (0.0-2.0); EOSINOPHILS # (AUTO) 0.4 K/uL (0.0-0.4); EOSINOPHILS % (AUTO) 3.4 % (0.0-4.0); HEMATOCRIT 38.6 % (36-54); LYMPHOCYTES # (AUTO) 1.6 K/uL (1.0-5.5); LYMPHOCYTES % (AUTO) 14.3 % (20.5-51.5); MEAN CORPUSCULAR HEMOGLOBIN 31 pg (27-31); MEAN CORPUSCULAR HGB CONC 34 % (32-36); MEAN CORPUSCULAR VOLUME 91 fL (79.0-98.0); MONOCYTES # (AUTO) 0.9 K/uL (0.0-1.0); MONOCYTES % (AUTO) 7.6 % (1.7-9.3); NEUTROPHILS # (AUTO) 8.4 K/uL (1.8-7.7); PLATELET COUNT (AUTO) 274 K/uL (130-430); RED BLOOD CELL COUNT(AUTO) 4.22 MIL/uL (4.2-6.2); RED CELL DISTRIBUTION WIDTH 14.6 % (9.0-15.0); WHITE BLOOD COUNT (AUTO) 11.3 K/uL (4.8-10.8)
[2022-08-25] MEDS ORDERED: AMOXICILLIN/CLAVULANATE POTASSIUM 500 MG TABLET PO SCH (14:00)
[2022-08-25 14:06] LABS: ANION GAP 12 (5-15); CHLORIDE 104 mmol/L (98-107); CREATININE 1.27 mg/dL (0.55-1.30); GLUCOSE 151 mg/dL (70-99); UREA NITROGEN, BLOOD 32 mg/dL (8-21)
[2022-08-25 14:45] VITALS: BP_SYST 107
[2022-08-25] MEDS ORDERED: POTASSIUM CHLORIDE 20 MEQ/PKT PACKET PO ONE (14:45)
[2022-08-25] MEDS ORDERED: NOR10 NG (14:46)
[2022-08-25] MEDS ORDERED: AMOX-423 PO (14:46)
[2022-08-25] MEDS ORDERED: SPIR25TA PO (14:46)
--- NOTE | 2022-08-25 17:05 | NUR ---
D/C Patient Patient given medication reconciliation form and D/C instructions. Exit Care provided. Patient verbalized understanding. MD discussed with patient the results and treatment provided. Wheelchair to vehicle for discharge to home. Patient in stable condition, ID band removed. IJ catheter removed, intact and dressing applied, no active bleeding. E-Rx of augmentin given. All belongings sent with patient.
--- NOTE | 2022-08-25 17:05 | NUR ---
IJ REMOVED IJ removed. Tip of catheter intact when removed. No active bleeding. 4x4 gauze applied to site.
[2022-08-25 17:26] VITALS: BP_SYST 110
== END 2022-08-25 17:05 | disposition home health service (06) | DRG 853 ==
LOC: SED 09:50 → STU 14:31 → SIC 08-15 02:28 → STU 08-19 22:31 → SMU 08-25 13:22
PROVIDERS: ADMIT Family Medicine; ATTEND Specialist
PROC: 5A1945Z Respiratory Ventilation, 24-96 Consecutive Hours (ICD-10-PCS; principal; 2022-08-14)
PROC: 02HV33Z Insertion of Infusion Device into Superior Vena Cava, Percutaneous Approach (ICD-10-PCS; 2022-08-14)
PROC: B548ZZA Ultrasonography of Superior Vena Cava, Guidance (ICD-10-PCS; 2022-08-14)
PROC: 0BH17EZ Insertion of Endotracheal Airway into Trachea, Via Natural or Artificial Opening (ICD-10-PCS; 2022-08-14)
PROC: 02CV3ZZ Extirpation of Matter from Superior Vena Cava, Percutaneous Approach (ICD-10-PCS; 2022-08-16)
DX: A41.9 Sepsis, unspecified organism (principal); J18.9 Pneumonia, unspecified organism; J96.01 Acute respiratory failure with hypoxia; I13.0 Hypertensive heart and chronic kidney disease with heart failure and stage 1 through stage 4 chronic kidney disease, or unspecified chronic kidney disease; E87.20 Acidosis, unspecified; E87.0 Hyperosmolality and hypernatremia; N17.9 Acute kidney failure, unspecified; M79.5 Residual foreign body in soft tissue; I50.9 Heart failure, unspecified; N18.2 Chronic kidney disease, stage 2 (mild); E11.22 Type 2 diabetes mellitus with diabetic chronic kidney disease; Z20.822 Contact with and (suspected) exposure to COVID-19; E87.6 Hypokalemia; E78.5 Hyperlipidemia, unspecified; E66.01 Morbid (severe) obesity due to excess calories; I27.20 Pulmonary hypertension, unspecified; I36.1 Nonrheumatic tricuspid (valve) insufficiency; I35.0 Nonrheumatic aortic (valve) stenosis; Z87.891 Personal history of nicotine dependence; Z79.899 Other long term (current) drug therapy; Z68.36 Body mass index [BMI] 36.0-36.9, adult
CPT/HCPCS: 36415; 36600; 71045; 80048; 80053; 82803-TC; 83036; 83605; 83690; 83880; 84443; 84484; 85025; 85379; 87040; 87070-TC; 87081; 87205-TC; 88300; 92610-GN; 93005; 93306; 93970; 94002; 94003; 94640; 94760; 96365; 96367; 96368; 96375; 97112-GP; 97116-GP; 97530-GP; 99291; 99292; C1769; G0378; J0360; J0456; J0461; J0696; J1100; J1265; J1650; J1940; J1956; J2543; J2704; J3010; J3480; J3490; J7050; J7612; J7613; Q9967